=== PATIENT | male | born 1990 | race Caucasian/White ===

== ENCOUNTER 2024-08-14 21:03 | Emergency (ER) | payer OTHER ==
[~2024-08-14] VITALS: Ht 175.3 cm; Wt 74.3 kg
[2024-08-14] MEDS ORDERED: LANTUS100 UNITS/ SUB-Q (21:16)
[2024-08-14] MEDS ORDERED: INSULIN LISPRO 100 UNIT/ML ML SUB-Q ONE ×2 (21:30→21:45)
[2024-08-14] MEDS ORDERED: [UNRECOGNIZED DRUG - OTHER] TOP (21:48)
[2024-08-14] MEDS ORDERED: EASY TOUCH SUB-Q (21:48)
[2024-08-14] MEDS ORDERED: NOVOLOG100 UNIT/2 SUB-Q (21:48)
[2024-08-14 21:55] VITALS: BP 140/96
[2024-08-14] MEDS ORDERED: ACETAMINOPHEN 325 MG TAB PO ONE (22:00)
== END 2024-08-14 21:55 | disposition home or self-care (01) ==
LOC: ED 21:03
DX: E10.9 Type 1 diabetes mellitus without complications (principal); Z79.4 Long term (current) use of insulin; Z88.0 Allergy status to penicillin
CPT/HCPCS: 99283; J1815

== ENCOUNTER 2025-01-29 18:05 | Emergency (ER) | payer OTHER ==
[~2025-01-29] VITALS: Ht 175.3 cm; Wt 80.3 kg
[~2025-01-29 18:05] MED LIST: EASY TOUCH SUB-Q; LANTUS100 UNITS/ SUB-Q; NOVOLOG100 UNIT/2 SUB-Q; [UNRECOGNIZED DRUG - OTHER] TOP
--- OUTSIDE RECORDS SUMMARY | 2025-01-29 18:10 | XMS ---
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 PHONE: [phone] -[facility] Dentist: Language Specialist [facility] PHONE: [phone] Malinda has no Care Guidelines for this patient. [place] VISIT COUNT (12 MO.) 3 [address] [facility] 2 [facility] 1 Maurice Sherman 1 [facility] TOTAL 10 NOTE: Visits indicate total known visits. ED/UCC VISIT TRACKING (12 MO.) 01/29/2025 18:06 DEUCE [facility] [place] TYPE: Emergency COMPLAINT: - ABCESS MOUTH 10/20/2024 16:38 [facility] [place] TYPE: Emergency COMPLAINT: - SKIN PROBLEM 08/14/2024 21:[address] [facility] [place] TYPE: Emergency COMPLAINT: - DIABETES PROBLEM DIAGNOSES: - Allergy status to penicillin - exterminator helper termite (current) use of insulin - Type 1 diabetes mellitus without complications 07/30/2024 02:45 [facility] [place] TYPE: Emergency COMPLAINT: - R- Spider Bites, Wound on leg DIAGNOSES: - Follicular disorder, unspecified - Insect Bite - R- Spider Bites, Wound on leg 07/13/2024 06:08 [facility] [place] TYPE: Emergency COMPLAINT: - EMS- SEIZURE DIAGNOSES: - Person with feared health complaint in whom no diagnosis is made - EMS- SEIZURE - [facility] [place] [facility] DIAGNOSES: - Other stimulant use, unspecified with intoxication, unspecified - Rhabdomyolysis - Type 1 diabetes mellitus with hyperglycemia - Foot Pain - Hand Pain - High Blood Sugar (Symptomatic) 05/20/2024 10:34 [facility] KANE Guerline TYPE: Emergency COMPLAINT: - R- MRSA DIAGNOSES: - Displaced fracture of second metatarsal bone, left foot, initial encounter for closed fracture - Methicillin resistant Staphylococcus aureus infection, unspecified site - Blood Sugar Problem - Foot Pain - R- MRSA - Sore 05/15/2024 12:01 Maurice [facility] TYPE: Emergency DIAGNOSES: - Disorder of the skin and subcutaneous tissue, unspecified - Hyperglycemia, unspecified - Other psychoactive substance abuse, uncomplicated - cramps 03/23/2024 21:51 [facility] TYPE: Emergency COMPLAINT: - Suicidal, Homless, Infections DIAGNOSES: - Cellulitis of unspecified part of limb - Multiple Systems Review - Suicidal, Homless, Infections 03/05/2024 16:23 [facility]ELKA [facility] M[facility] TYPE: Emergency COMPLAINT: - Psych eval DIAGNOSES: - Delusional disorders - Psych eval - Skin Problem INPATIENT VISIT TRACKING (12 MO.) [facility]: Renal DIAGNOSES: - Homelessness unspecified - Other psychoactive substance abuse, uncomplicated - Other psychoactive substance use, unspecified, uncomplicated - Other stimulant use, unspecified with intoxication, unspecified - Rhabdomyolysis - Type 1 diabetes mellitus with hyperglycemia - Type 2 diabetes mellitus with hyperosmolarity without nonketotic hyperglycemic-hyperosmolar coma ([facility]) [id number]
[2025-01-29] MEDS ORDERED: BUPRENORPHINE-1 EACH SL (18:25)
[2025-01-29] MEDS ORDERED: ADMELOG SO100 UNIT/1 (18:25)
[2025-01-29] MEDS ORDERED: GABAPENTIN600 MG PO (18:25)
[2025-01-29 18:55] VITALS: BP 136/95
[2025-01-29] MEDS ORDERED: DOXYCYCLINE HYCLATE 100 MG HOME.PACK PO ONE (19:00)
[2025-01-29] MEDS ORDERED: IBUPROFEN 600 MG TAB PO ONE (19:00)
== END 2025-01-29 19:00 | disposition home or self-care (01) ==
LOC: ED 18:05
DX: K02.9 Dental caries, unspecified (principal); R21 Rash and other nonspecific skin eruption; E10.9 Type 1 diabetes mellitus without complications; Z88.0 Allergy status to penicillin; Z79.4 Long term (current) use of insulin
CPT/HCPCS: 99282; A9270

== ENCOUNTER 2025-02-15 11:29 | Emergency (ER) | payer OTHER ==
[~2025-02-15] VITALS: Ht 175.3 cm; Wt 80.5 kg
[~2025-02-15 11:29] MED LIST changes: +ADMELOG SO100 UNIT/1; +BUPRENORPHINE-1 EACH SL; +GABAPENTIN600 MG PO
--- OUTSIDE RECORDS SUMMARY | 2025-02-15 11:36 | XMS ---
PreManage Notification: VERONIKA PERKINS Security Electrical Fitter Events No recent Security Events currently on file CRITERIA MET - Group Notification - [facility] - 2 Visits in 30 Days CARE PROVIDERS -, [facility] Dentist: Stone Clean[facility] PHONE: [phone] -, [facility] Dentist: Stone Cleaner [facility] PHONE: [phone] Malinda has no Care Guidelines for this patient. E.D. VISIT COUNT (12 MO.) 4 [facility] 3 [facility] 2 [facility] 1 Maurice Sherman 1 [facility] [place] [facility] TOTAL 11 NOTE: Visits indicate total known visits. ED/UCC VISIT TRACKING (12 MO.) 02/15/2025 11:30 [facility] [place] TYPE: Emergency COMPLAINT: - DENTAL PAIN 01/29/2025 18:06 [facility] [place] TYPE: Emergency COMPLAINT: - ABCESS MOUTH DIAGNOSES: - Allergy status to penicillin - Dental caries, unspecified - terminal operations supervisor (current) use of insulin - Other specified disorders of teeth and supporting structures - Rash and other nonspecific skin eruption - Type 1 diabetes mellitus without complications 10/20/2024 16:38 [facility] [place] TYPE: Emergency COMPLAINT: - SKIN PROBLEM 08/14/2024 21:04 DEUCE Chan TYPE: Emergency COMPLAINT: - DIABETES PROBLEM DIAGNOSES: - Allergy status to penicillin - terminal operations supervisor (current) use of insulin - Type 1 diabetes mellitus without complications 07/30/2024 02:45 [facility] [place] TYPE: Emergency COMPLAINT: - R- Spider Bites, Wound on leg DIAGNOSES: - Follicular disorder, unspecified - Insect Bite - R- Spider Bites, Wound on leg 07/13/2024 06:08 [facility] [place] TYPE: Emergency COMPLAINT: - EMS- SEIZURE DIAGNOSES: - Person with feared health complaint in whom no diagnosis is made - EMS- SEIZURE - Seizures 06/16/2024 19:00 [facility] [place] TYPE: Emergency DIAGNOSES: - Other stimulant use, unspecified with intoxication, unspecified - Rhabdomyolysis - Type 1 diabetes mellitus with hyperglycemia - Foot Pain - Hand Pain - High Blood Sugar (Symptomatic) 05/20/2024 10:34 [facility] TYPE: Emergency COMPLAINT: - R- MRSA DIAGNOSES: - Displaced fracture of second metatarsal bone, left foot, initial encounter for closed fracture - Methicillin resistant Staphylococcus aureus infection, unspecified site - Blood Sugar Problem - Foot Pain - R- MRSA - Sore 05/15/2024 12:01 [facility] [place] TYPE: Emergency DIAGNOSES: - Disorder of the skin and subcutaneous tissue, unspecified - Hyperglycemia, unspecified - Other psychoactive substance abuse, uncomplicated - cramps 03/23/2024 21:51 [facility] [place] TYPE: Emergency COMPLAINT: - Suicidal, Homless, Infections DIAGNOSES: - Cellulitis of unspecified part of limb - Multiple Systems Review - Suicidal, Homless, Infections 03/05/2024 16[facility] COMPLAINT: - Psych eval DIAGNOSES: - Delusional disorders - Psych eval - Skin Problem INPATIENT VISIT TRACKING (12 MO.) 06/16/2024 19:00 [facility] [place] TYPE: Renal DIAGNOSES: - Homelessness unspecified - Other psychoactive substance abuse, uncomplicated - Other psychoactive substance use, unspecified, uncomplicated - Other stimulant use, unspecified with intoxication, unspecified - Rhabdomyolysis - Type 1 diabetes mellitus with hyperglycemia - Type 2 diabetes mellitus with hyperosmolarity without nonketotic hyperglycemic-hyperosmolar coma ([facility]) [email or web address]
[2025-02-15] MEDS ORDERED: ACETAMINOPHEN 500 MG TAB PO ONE (12:15)
[2025-02-15] MEDS ORDERED: CLEOCIN HCL300 MG PO (13:33)
== END 2025-02-15 13:39 | disposition home or self-care (01) ==
LOC: ED 11:29
DX: K08.89 Other specified disorders of teeth and supporting structures (principal); E10.9 Type 1 diabetes mellitus without complications; Z79.4 Long term (current) use of insulin; Z88.0 Allergy status to penicillin
CPT/HCPCS: 99282; A9270